=== PATIENT | female | born 1960 | race Two or more races ===

== ENCOUNTER → 2018-11-01 | Outpatient (CLI) | payer OTHER ==
[~2018-11-01] MED LIST: ALDACTONE50 MG PO; CELEXA20 MG PO; CLONAZEPAM1 MG PO; DULERA 100 MCG/13 GM IH; LASIX20 MG PO; PERCOCET 5/3251 TAB PO; PLETAL PO; ULTRAM50 MG PO; [UNRECOGNIZED DRUG - REMARK] SQ
== END | disposition home or self-care (01) ==
LOC: NUCLEAR 07:55
DX: M25.612 Stiffness of left shoulder, not elsewhere classified (principal)
CPT/HCPCS: 78306; 78315; A9503

== ENCOUNTER 2019-01-04 07:16 | Outpatient (CLI) | payer OTHER | END 2019-01-04 07:47 | disposition home or self-care (01) | LOC: LAB 07:16 | DX: D68.8 Other specified coagulation defects (principal); E78.2 Mixed hyperlipidemia; N39.0 Urinary tract infection, site not specified; I10 Essential (primary) hypertension; R07.89 Other chest pain ==